=== PATIENT | female | born 1965 | race Caucasian/White ===

== ENCOUNTER 2021-01-03 09:49 | Emergency (ER) | payer BC, SELFPAY ==
--- NOTE | 2021-01-03 09:58 | PC.NURSE ---
Patient never seen by this RN. C[employer]ET [employer]PHOL[employer] went to see patient at registration and sent patient to ED for skin repair.
--- NOTE | 2021-01-03 09:59 | ED_ITS ---
HPI - Fall General Chief Complaint: Fall Stated Complaint: FACIAL INJURY Time Seen by Provider: 01/03/21 09:59 Source: patient and RN notes reviewed Mode of arrival: ambulatory Limitations: no limitations History of Present Illness HPI Narrative: 55 year old female who presents to [facility] care with fall at home this morning with lacerations to nose and left inner eyebrow region. Patient states that she has pain to her nose and also to left forehead area and is concerned about fractures. Wounds to nasal region are deep with presently bleeding controlled, denies any LOC at time of fall at home. MD complaint: fall Related Data Allergies Allergy/AdvReac Type Severity Reaction Status Date / Time No Known Allergies Allergy Verified 01/03/20 16:42 [facility] Past Medical History Medical History (Updated 01/03/21 @ 10:13 by Mendy Starr NP) Primary insomnia Family History Family History (Updated 07/28/18 @ 10:04 by DOCTOR UNKNOWN) Mother Diabetes mellitus Hypertension Grandparent Cerebrovascular accident Social History Social History Smoking status: Never smoker Second hand tobacco smoke exposure: No Alcohol intake: current MDM - Fall MDM Narrative Medical decision making narrative: Spoke with patient in regards to her facial lacerations and possibility of need for further testing which would require transfer to ED. Patient states that she would just prefer to go directly now to the ED and to have possible plastics repair. Differential Diagnosis Differential diagnosis: Likely other (facial injury from fall, facial lacerations,fracture of nose and facial bones.) Medical Records Attestation: I reviewed the patient's medical records. Discharge Plan Discharge Clinical Impression: Face lacerations Patient Disposition: Left Without Being Seen Prescriptions: No Action ipratropium bromide 0.03 % spray,non-aerosol 2 spray NASAL BID Qty: 30 RF: 4 amitriptyline 50 mg tablet 50 mg PO ONCE Qty: 90 RF: 1 levonorgestrel-ethinyl estrad [Introvale] 0.15 mg-30 mcg (91) tablets,dose pack,3 month See Rx Instructions .ROUTE .COMPLEX Qty: 91 RF: 0 zolpidem 12.5 mg tablet,ext release multiphase 12.5 mg PO .at night PRN (Reason: insomnia) Qty: 30 RF: 1 Follow-up/Referrals: Amina Davidson MD [Primary Care Provider] - Time of Disposition: 10:00 [facility] [place] Coma Scale Eyes: Open Verbal: Oriented and Alert Motor: Follows Commands Reagan Coma Total Score: 15
== END 2021-01-03 10:00 | disposition left against medical advice (07) ==
PROVIDERS: Emergency Provider Registered Nurse; PCP Family Medicine
DX: Z53.21 Procedure and treatment not carried out due to patient leaving prior to being seen by health care provider (principal)
CPT/HCPCS: 99199

== ENCOUNTER 2021-01-03 10:12 | Emergency (ER) | payer BC, SELFPAY ==
--- NOTE | ~2021-01-03 | CT_ITS ---
EXAMINATION: CT brain wo con DATE: 01/03/2021 10:40 INDICATION: Head injury. TECHNIQUE: Computed tomography (CT) of the head was performed without intravenous contrast. The mA wa s adjusted according to patient size. Iterative reconstruction technique was employed. The dose-lengt h product was 605.33 mGy-cm. COMPARISON: None FINDINGS: In the right frontotemporal region, there is a 4.4 x 4.2 cm extra-axial mass with calcifica tions that is isodense to magana matter. There is adjacent vasogenic edema. There is leftward midline s hift measuring 6 mm at the foramen of Monro. There is no intracranial hemorrhage or acute ischemic in farct. There is mass effect on the ventricles. There are fractures of the nasal bones. The mastoid ai r cells are normal. The orbits are normal. IMPRESSION: 1. 4.4 cm extra-axial mass in the right frontotemporal region, consistent with a meningioma. 2. Fractures of the nasal bones. Reviewed, dictated and finalized at location [facility]
--- NOTE | ~2021-01-03 | CT_ITS ---
EXAMINATION: CT facial bones wo con DATE: 01/03/2021 10:40 INDICATION: Face injury. TECHNIQUE: Computed tomography (CT) of the facial bones and maxillofacial region was performed withou t intravenous contrast. Automated exposure control and iterative reconstruction technique were employ ed. The dose-length product was 271.91 mGy-cm. COMPARISON: None. FINDINGS: There is a 4.4 cm partially calcified extra-axial mass in right frontotemporal region, cons istent with a meningioma. There are fractures of the nasal bones, left nasal process of maxilla, and nasal septum. There is rightward deviation of the nasal septum. There is mild cervical spondylosis. IMPRESSION: 1. Fractures of the nasal bones, left nasal process of maxilla, and nasal septum. 2. 4.4 cm extra-axial mass in right frontotemporal region, consistent with a meningioma. Reviewed, dictated and finalized at location [facility] IMPRESSION: 1. Fractures of the nasal bones, left nasal process of maxilla, and nasal septu m. 2. 4.4 cm extra-axial mass in right frontotemporal region, consistent with a me ningioma.
[2021-01-03 10:19] VITALS: BP 163/100; PULSE 106; RESP 18; TEMP 36.8; O2SAT 100
--- NOTE | 2021-01-03 10:36 | ED.GENADULT ---
HPI - General Adult General Chief complaint: Fall Stated complaint: fall Time Seen by Provider: 01/03/21 10:16 Source: patient Mode of arrival: ambulatory Limitations: no limitations History of Present Illness HPI narrative: Patient presents with chief complaint of laceration to the frontal aspect of her face after falling into a marble pole at her house while attempting to use the bathroom at 530 this morning. Patient states that she hit her head and feels well for. Patient states that she does not think that she passed out but she is not sure. Patient states that she went to the bathroom to clean herself up and sat in the chair to avoid disturbing her family. She states she been sent out her work emails and waited for her family to a good to come to be evaluated. They presented to urgent care who stated that she needed to come to the emergency department. Patient states that her vision and hearing are normal. Patient denies intense headache. Patient reports that if the areas are not touched her pain level is at one. She denies being on a blood thinner. Patient takes control pills and zolpidem for sleep. She denies any other medical issues. Patient denies any vomiting. She denies any neck pain. Related Data Allergies Allergy/AdvReac Type Severity Reaction Status Date / Time No Known Allergies Allergy Verified 01/03/21 10:26 Review of Systems Review of Systems: Narrative: CONSTITUTIONAL: Denies fever, chills, or sweats. EYES: Denies visual changes, redness, or discharge. ENT: Denies rhinorrhea, congestion, sore throat, or otalgia. CARDIOVASCULAR: Denies chest pain, palpitations, or edema. RESPIRATORY: Denies cough or dyspnea. GASTROINTESTINAL: Denies abdominal pain, nausea, vomiting, or diarrhea. GENITOURINARY: Denies dysuria or hematuria. SKIN: Reports facial laceration Denies rash or itching. MUSCULOSKELETAL: Denies back pain, myalgia, or joint pain NEUROLOGIC: Denies headache, numbness, dizziness, or weakness. PSYCHIATRIC: Denies anxiety or depression. [facility] Past Medical History Medical History (Updated 01/03/21 @ 13:33 by Ethan Kiran PA-C) Primary insomnia Family History Family History (Updated 07/28/18 @ 10:04 by DOCTOR UNKNOWN) Mother Diabetes mellitus Hypertension Grandparent Cerebrovascular accident Social History Social History Smoking status: Never smoker Second hand tobacco smoke exposure: No Alcohol intake: current Gender identity (if verbalized by the patient): Female Exam Narrative: Exam Narrative: GENERAL: Well-appearing, well-nourished. HEAD: 3cm diagonal laceration from the glabella through the eyebrow and over the left eyelid. Minimal bleeding presently. Patient is able to open and close eyelids without deficit. EYES: PERRLA and EOMI. ENT: dried blood in nares. No active bleeding. 4cm vertical laceration to the right side of the nare down to the apex, deep but does not appear to go completely thru. Mucous membranes moist. Oropharynx without tonsillar hypertrophy exudate or other lesions. Bilateral TMs pearly magana nonbulging NECK: Supple. No adenopathy or masses. No vertebral tenderness or loss of ROM. Patient denies pain with ROM. CHEST: Clear to auscultation. No respiratory distress. No wheezes rales or rhonchi HEART: Regular rate and rhythm. Normal peripheral pulses. ABDOMEN: Soft, nontender, nondistended, normal active bowel sounds. EXTREMITIES: No acute changes in ROM. No edema. SKIN: Warm, dry, no rash. NEURO: No focal deficits. Alert and oriented x3. PSYCH: Normal mood and affect. Course Vital Signs Vital signs: Vital Signs Temperature 98.3 F 01/03/21 10:19 Pulse Rate 106 H 01/03/21 10:19 Respiratory Rate 18 01/03/21 10:19 Blood Pressure 163/100 H 01/03/21 10:19 Pulse Oximetry 100 01/03/21 10:19 Temperature 98.3 F 01/03/21 10:19 Pulse Rate 78 01/03/21 13:48 Respiratory Rate 18 01/03/21 13:48 Blood Pressure
[2021-01-03] MEDS: TETANUS/DIPHTHERIA TOXOIDS ADSORB 0.5 ML VIAL (*BKC) IM (13:41)
[2021-01-03 13:48] VITALS: BP 138/72; PULSE 78; RESP 18; O2SAT 99
--- NOTE | 2021-01-04 10:34 | WPDCN ---
HPI Data of Consult Date/Time: 01/03/21 10:34 Primary Care Provider: Amina Davidson MD Consult Narrative Narrative: Kymberly Means is a 55 year old female who is usually healthy, but fell at her home striking her face. She sustained lacerations to her left upper orbit, sparing the globe, and to her her nose lacerating from the glabella to the tip. A nasal fracture was sustained. I reviewed the facial CT images. Teeth were not involved. There were no intraoral lacerations. It did not appear that reduction would be indicated. Her pMHx did not indicate that there would be special risk in repairing her lacerations in the ED. She agreed to have lacerations repaired under local anesthesia. Reviewed her Social history. The ER MD reported that the intracranial mass is already being monitored by other providers. PMFSH Past Medical History Medical History (Updated 01/04/21 @ 00:01 by Slava Bowers) Primary insomnia Family History Family History (Updated 07/28/18 @ 10:04 by DOCTOR UNKNOWN) Mother Diabetes mellitus Hypertension Grandparent Cerebrovascular accident Social History Social History Smoking status: Never smoker Second hand tobacco smoke exposure: No Alcohol intake: current Gender identity (if verbalized by the patient): Female Meds Home Medications and Allergies Home Medications Medication Instructions Recorded Confirmed Type levonorgestrel 0.15 mg-ethinyl See Rx Instructions .ROUTE 11/14/20 Rx estradiol 30 mcg tablets,3 mos .COMPLEX #91 tablet pack(91) zolpidem 12.5 mg tablet,extended 12.5 mg PO .at night PRN #30 tablet 11/27/20 Rx release,multiphase amoxicillin-pot clavulanate 1 tablet PO Q12H #20 tablet 01/03/21 Rx [Augmentin] hydrocodone-acetaminophen 1 tablet PO Q8H PRN #10 tablet 01/03/21 Rx Allergies Allergy/AdvReac Type Severity Reaction Status Date / Time No Known Allergies Allergy Verified 01/03/21 10:26 Vital Signs Vital Signs - 24 hr 01/03/21 13:48 Pulse Rate 78 Respiratory Rate 18 Blood Pressure 138/72 Pulse Oximetry 99
--- NOTE | 2021-01-04 10:45 | P.OP_ITS ---
Procedure Note - Detailed Date of procedure: 01/04/21 Pre-op diagnosis: fall Stellate facial lacerations to left upper orbit and nose. Minimally displaced nasal fractures Post-op diagnosis: same Procedure performed: Complex repair of facial lacerations involving the left upper orbit and nose total 7 cm Description of procedure: The patient was examined in the ER on the [facility]. She was comfortable as we discussed the plan for repair these and the unlikely need for nasal fracture repair and she agreed to have her facial lacerations repaired. The sites were locally infiltrated with 1% lidocaine with epinephrine. The area was prepped with Shur-Clens. The wounds were carefully examined and cleansed of all clot. There was no foreign material noted. The nose appeared midline. She had no oral or dental injuries. The nasal laceration required 15 blade marginal excisions in a couple of areas to block the edges for better coaptation. The repairs were then done with intradermal of 5 0 Vicryl and the skin was closed with 6 0 running Prolene. On the left upper eyelid and orbit area the wound was explored. It did not appear that cutaneous nerves were injured. The globe was not injured. The wound edges were trimmed with scissors to simplify the margins. These were then closed with intradermal 5 0 Vicryl and interrupted 5 0 chromic. Her situation was discussed with the ER physician was discharged her. I gave my planned for wound care and follow-up Surgeon: Melvin Roche MD
== END 2021-01-03 13:50 | disposition home or self-care (01) ==
PROVIDERS: Emergency Provider Emergency Medicine; PCP Family Medicine
DX: S02.2XXB Fracture of nasal bones, initial encounter for open fracture (principal); Z23 Encounter for immunization; W18.30XA Fall on same level, unspecified, initial encounter
CPT/HCPCS: 12014; 70450; 70486; 90471; 90714; 99284

== ENCOUNTER 2023-09-24 00:51 | Day surgery (SDC) | payer BC, SELFPAY ==
[2023-09-11 13:45] VITALS: BMI 23.5
[2023-09-24 07:52] VITALS: BP 130/87; PULSE 100; RESP 20; TEMP 36.5; O2SAT 100; BMI 24.3
[2023-09-24] MEDS: LACTATED RINGERS 1,000 ML 150 ML IV CONT (07:54)
--- NOTE | 2023-09-24 09:01 | PM.HPGS ---
History of Present Illness History of Present Illness Consent: Risks, benefits, and alternatives have been discussed and questions answered. Patient agrees to proceed with procedure. Chief complaint: Other fecal abnormalities Narrative: Kymberly Means is a 58 year old female here for first colonoscopy, had + cologuard Review of Systems Constitutional: Constitutional: Denies headache(s) and Denies weakness Eyes: Eyes: Denies blurry vision ENT: Reports Normal hearing present, Denies headache(s) and Denies neck pain Cardiovascular: Cardiovascular: Denies chest pain and Denies dyspnea Respiratory: Respiratory: Denies dyspnea Gastrointestinal: Gastrointestinal: Reports no additional gastrointestinal complaints Genitourinary: Genitourinary: Denies dysuria Musculoskeletal: Musculoskeletal: Denies neck pain Integumentary/Breasts: Skin/Breast: Denies dry skin Neurologic: Reports Normal hearing present, Denies headache(s) and Denies weakness Psychiatric: Psychiatric: Denies anxiety Endocrine: Endocrine: Denies change in body appearance Hematologic/Lymphatic: Hematologic/Lymphatic: Denies easy bleeding Allergic/Immunologic: Allergic/Immunologic: Denies urticaria PMFSH Past Medical History Medical History (Updated 09/24/23 @ 09:01 by Jose Saucedo MD) Meningioma Positive colorectal cancer screening using Cologuard test Primary insomnia Surgical History Surgical History H/O craniotomy for benign meningioma resection Family History Family History Mother Diabetes mellitus Hypertension Grandparent Cerebrovascular accident Social History Social History Smoking status: Never smoker Second hand tobacco smoke exposure: No Alcohol intake: current Drinks per week: 21 Alcohol use details: Reports having 3-4 beers every evening, feels she is drinking way too much but that she doesn't need help with stopping. Substance use: never Substance use type: does not use Lack of Transportation: No Lack of Food: Never True Current Housing: I Have Housing Concerned About Future Housing: No Difficulty Paying Gas/Electric Bills: No Difficulty Paying for Meds: No Currently Unemployed: No Education: Master's Degree or Higher Difficulty w/ Childcare or Family Care: No Living arrangements: with family Gender identity (if verbalized by the patient): Female Spiritual care concerns: No Agree to blood products: Yes Meds Home Medications and Allergies Home Medications Medication Instructions Recorded Confirmed Type amitriptyline 50 mg tablet 50 mg PO QHS #30 tabs 08/06/23 09/24/23 Rx lisinopril 5 mg tablet 5 mg PO DAILY #30 tabs 08/06/23 09/24/23 Rx Adults Multivitamin 1 cap PO DAILY 09/11/23 09/24/23 History estradiol-norethindrone acet 1 1 tablet PO DAILY 09/11/23 09/24/23 History mg-0.5 mg tablet nitrofurantoin macrocrystal 50 mg 50 mg PO HS 09/11/23 09/24/23 History capsule Allergies Allergy/AdvReac Type Severity Reaction Status Date / Time No Known Allergies Allergy Verified 09/24/23 07:50 Vital Signs Vital Signs - 24 hr 09/24/23 07:52 Temperature 97.7 F Pulse Rate 100 Respiratory Rate 20 Blood Pressure 130/87 Pulse Oximetry 100 Oxygen Delivery Room Air Exam Const: General: comfortable and no acute distress HENMT: Face/Nose/Sinus: Normal nares present Eyes: General: appearance normal, both eyes and all related structures Neck: Neck: no JVD Resp: Auscultation: clear to auscultation bilaterally Cardio: Rate: regular rate Rhythm: regular rhythm GI: Inspection: non-distended GI Palp: Yes Soft to palpation Skin: General skin exam: normal color Neuro: General: gait normal Speech: normal speech Extrem: General: normal to inspection Psych: Men
--- NOTE | 2023-09-24 09:04 | WPDANESEPPF ---
Anes - Initial Pre Proc Eval Procedure: Operation Date: 09/24/23 09:00 Proposed Procedures p Colonoscopy - Jose Saucedo MD Date/Time: 09/24/23 09:04 Surgeon: Jose Saucedo MD Pre Op Diagnosis: Other fecal abnormalities Patient Data Age: 58 Gender: F Height: 1.68 m Weight: 68.2 kg Last Vital Signs Temp 97.7 F 09/24/23 07:52 Pulse 100 09/24/23 07:52 Resp 20 09/24/23 07:52 BP 130/87 09/24/23 07:52 Pulse Ox 100 09/24/23 07:52 O2 Del Method Room Air 09/24/23 07:52 Allergies Allergy/AdvReac Type Severity Reaction Status Date / Time No Known Allergies Allergy Verified 09/24/23 07:50 Home Medications Medication Instructions Recorded Confirmed Type amitriptyline 50 mg tablet 50 mg PO QHS #30 tabs 08/06/23 09/24/23 Rx lisinopril 5 mg tablet 5 mg PO DAILY #30 tabs 08/06/23 09/24/23 Rx Adults Multivitamin 1 cap PO DAILY 09/11/23 09/24/23 History estradiol-norethindrone acet 1 1 tablet PO DAILY 09/11/23 09/24/23 History mg-0.5 mg tablet nitrofurantoin macrocrystal 50 mg 50 mg PO HS 09/11/23 09/24/23 History capsule Patient hx anesthesia problems: none Family hx anesthesia problems: none Results Review: All pre-operative results and documents have been reviewed as part of the pre-operative evaluation. [facility] Past Medical History Medical History (Updated 09/24/23 @ 09:01 by Jose Saucedo MD) Meningioma Positive colorectal cancer screening using Cologuard test Primary insomnia Surgical History Surgical History H/O craniotomy for benign meningioma resection Family History Family History Mother Diabetes mellitus Hypertension Grandparent Cerebrovascular accident Social History Social History Smoking status: Never smoker Second hand tobacco smoke exposure: No Alcohol intake: current Drinks per week: 21 Alcohol use details: Reports having 3-4 beers every evening, feels she is drinking way too much but that she doesn't need help with stopping. Substance use: never Substance use type: does not use Lack of Transportation: No Lack of Food: Never True Current Housing: I Have Housing Concerned About Future Housing: No Difficulty Paying Gas/Electric Bills: No Difficulty Paying for Meds: No Currently Unemployed: No Education: Master's Degree or Higher Difficulty w/ Childcare or Family Care: No Living arrangements: with family Gender identity (if verbalized by the patient): Female Spiritual care concerns: No Agree to blood products: Yes Anes - Eval Final PreProcedure Day of Procedure 09/24/23 09:04 Patient weight: normal Heart: regular rate and rhythm Lungs: clear to auscultation Airway: Mallampati scale class II Neurological: alert and oriented Last oral intake: >/= 8 hours ASA classification: II Emergent: no Anesthetic plan: proceed Anesthesia type and monitoring: general GIVS and standard monitoring Results Review: All pre-operative results and documents have been reviewed as part of the pre-operative evaluation. Informed Consent: The patient's anesthetic plan and its attendant risks and benefits were discussed with the patient/family/POA. Questions were solicited and answers provided to the satisfaction of the patient/family/POA.
[2023-09-24 09:31] VITALS: BP 85/46; PULSE 82; RESP 20; O2SAT 96
[2023-09-24 09:41] VITALS: BP 102/55; PULSE 76; RESP 20; O2SAT 97
[2023-09-24 09:51] VITALS: BP 103/65; PULSE 72; RESP 20; O2SAT 99
== END 2023-09-24 09:56 | disposition home or self-care (01) ==
PROVIDERS: PCP Family Medicine; Visit Provider Internal Medicine Gastroenterology
PROC: 0DJD8ZZ Inspection of Lower Intestinal Tract, Via Natural or Artificial Opening Endoscopic (ICD-10-PCS; CPT 45378; principal; 2023-09-24 09:00)
DX: R19.5 Other fecal abnormalities (principal); K64.8 Other hemorrhoids; F51.01 Primary insomnia; Z86.011 Personal history of benign neoplasm of the brain; Z98.890 Other specified postprocedural states; Z82.49 Family history of ischemic heart disease and other diseases of the circulatory system
CPT/HCPCS: 45378; J2001; J2704; J7120